=== PATIENT | female | born 1985 | race Hispanic/Latino ===

== ENCOUNTER 2017-03-09 23:04 | Emergency (ER) | payer SELFPAY ==
[2017-03-09 23:15] VITALS: RESP 20
[2017-03-09] MEDS ORDERED: Sodium Chloride 0.9% 1,000 ML IV ONE (23:17)
[2017-03-09] MEDS ORDERED: Sodium Chloride 0.9% 1,000 ML ONE (23:23)
[2017-03-09 23:25] LABS: BASO # 0.1 K/uL (0.0-0.2); BASO % 0.5 % (0.0-2.0); EOS # 0.5 K/uL (0.0-0.7); EOS % 4.1 % (0.0-4.0); HEMATOCRIT 43.1 % (34.0-47.0); LYMPH # 3.4 K/uL (1.0-4.3); LYMPH % 26.3 % (20.0-40.0); MEAN CELL VOLUME 94.3 fL (81.0-99.0); MEAN CORPUSCULAR HEMOGLOBIN 31.5 pg (27.0-31.0); MEAN CORPUSCULAR HGB CONC 33.5 g/dL (33.0-37.0); MEAN PLATELET VOLUME 8.9 fL (7.2-11.7); MONO # 0.7 K/uL (0.0-0.8); MONO % 5.2 % (0.0-10.0); NRBC % 0.1 % (0.0-2.0); RED CELL DISTRIBUTION WIDTH 13.2 % (11.5-14.5); WHITE BLOOD COUNT 12.9 K/uL (4.8-10.8)
[2017-03-09 23:34] LABS: CHLORIDE 107 mmol/L (98-107); POTASSIUM 4.2 mmol/L (3.6-5.2); SODIUM 143 mmol/L (132-148)
[2017-03-09 23:36] LABS: BILIRUBIN,TOTAL 0.4 mg/dL (0.2-1.3); GFR AFRICAN-AMERICAN > 60
[2017-03-09 23:37] LABS: ALB/GLOB RATIO 1.5 (1.0-2.1); ALKALINE PHOSPHATASE 62 U/L (38-126); ALT/SGPT 21 U/L (9-52); AST/SGOT 18 U/L (14-36); BLOOD UREA NITROGEN 13 mg/dL (7-17); CALCIUM 8.6 mg/dl (8.6-10.4); CARBON DIOXIDE 22 mmol/L (22-30); GLUCOSE,RANDOM 85 mg/dL (65-105); TOTAL PROTEIN 7.7 g/dL (6.3-8.3)
[2017-03-09 23:38] LABS: ALCOHOL SERUM 238 mg/dl (0-10)
--- NOTE | 2017-03-10 00:04 | C.PDOC ---
History Of Present Illness A 32 year old female with a Hx of EToH abuse since 2011 and EToH pancreatitis, presents to the ER c/o acute onset RLQ abdominal pain that began 1 hour prior to arrival. Patient admits to drinking EToH but denies nausea, vomiting, diarrhea, fever, chills, trauma, or any other complaints. Time Seen by Provider: 03/09/17 23:14 Chief Complaint (Nursing): Abdominal Pain History Per: Patient History/Exam Limitations: no limitations Onset/Duration Of Symptoms: Hrs Current Symptoms Are (Timing): Still Present Severity: Mild Location Of Pain/Discomfort: RLQ Quality Of Discomfort: Other (Sudden onset) Additional History Per: Patient Past Medical History Reviewed: Historical Data, Nursing Documentation, Vital Signs Vital Signs: Last Vital Signs Temp 98 F 03/10/17 00:34 Pulse 81 03/10/17 00:34 Resp 20 03/10/17 00:34 BP 122/70 03/10/17 00:34 Pulse Ox 100 03/10/17 00:57 - Medical History PMH: Anemia, Asthma - [facility] Procedures INJECT/INFUSE NEC (02/06/15) Family History: States: Unknown Family Hx - Social History Hx Tobacco Use: Yes Hx Alcohol Use: Yes Hx Substance Use: No - Immunization History Hx Tetanus Toxoid Vaccination: Yes Hx Influenza Vaccination: Yes Hx Pneumococcal Vaccination: No Review Of Systems Except As Marked, All Systems Reviewed And Found Negative. Constitutional: Negative for: Fever, Chills Gastrointestinal: Positive for: Abdominal Pain (RLQ). Negative for: Nausea, Vomiting, Diarrhea Physical Exam - Physical Exam Appears: Non-toxic, In Acute Distress (Mild), Other (+AOB) Skin: Warm, Dry Head: Atraumatic, Normacephalic Eye(s): bilateral: Normal Inspection Cardiovascular: Rhythm Regular, No Murmur Respiratory: Normal Breath Sounds, No Rales, No Rhonchi, No Wheezing Gastrointestinal/Abdominal: Soft, Tenderness (RLQ) Neurological/Psych: Oriented x3, Normal Speech, Normal Cognition ED Course And Treatment - Laboratory Results Result Diagrams: 03/09/17 23:23 03/09/17 23:23 Lab Interpretation: Abnormal (etoh 238 H, quant hcg < 2.39 (neg)) O2 Sat by Pulse Oximetry: 100 (Room air) Pulse Ox Interpretation: Normal Medical Decision Making Medical Decision Making: Plans: -Toradol -IV fluids -Reassess and disposition bizarre intoxicated behavior- d/w pt's mother by phone- pt has been drinking heavily and daily lately h/o alcoholic pancreatitis Boyfriend to picked her up is not her (initially identified as such) 0020: pt pulled her IV out (bleeding on floor) and wanted AMA d/c. instructed to return to ED for further eval PRN/as able pt left ED in no apparent abd pain, intoxicated but stable gait, escorted from ED by her boyfriend who appears sober. Quant HCG neg- low susp of ectopic preg RLL abd pain prob NOT c/w alcoholic pancreatitis- lipase neg. The patient declines to have further medical evaluation and treatment and wishes to leave the Emergency Department. This action is against my medical advice to the patient, and with informed refusal. The patient was told that evaluation and treatment are necessary and a full explanation of the rationale was given. The risks of leaving were explained to the patient and include, but are not limited to, worsening of known or currently unknown conditions, permanent disability and from undiagnosed or untreated conditions The patient has the capacity to make this informed decision and understands the clinical situation and my explanation of the risks of leaving. The patient voluntarily accepts these risks, and a signed AMA form documenting our conversation was obtained. The patient was given the opportunity to ask questions and reconsider. The patient was encouraged to return to the Emergency Department at any time for further care. Disposition - Disposition Disposition: AGAINST MEDICAL ADVICE Disposition Time: 00:20 Condition: GOOD - Clinical Impression Clinical Impression: Abdominal pain, Alcohol abuse - Scribe Statement The provider has reviewed the documentation as recorded by the Scrib[facility]ico grimm All medical record entries made by the Merlin[facility] were at my direction and personally dictated by me. I have reviewed the chart and agree that the record accurately reflects my personal performance of the history, physical exam, medical decision making, and the department course for this patient. I have also personally directed, reviewed, and agree with the discharge instructions and disposition.
[2017-03-10 00:35] VITALS: BP 122/70; PULSE 81; TEMP 98
[2017-03-10 00:42] VITALS: O2SAT 100
== END 2017-03-10 00:35 | disposition left against medical advice (07) ==
LOC: C.ER 23:04
DX: R10.31 Right lower quadrant pain (principal); F10.10 Alcohol abuse, uncomplicated; Y90.7 Blood alcohol level of 200-239 mg/100 ml
CPT/HCPCS: 80053; 83690; 84702; 85025; 96361; 96374; 99285; G0480; J1885; J7040